=== PATIENT | male | born 1965 | race Caucasian/White ===

== ENCOUNTER 2017-12-28 12:14 | Emergency (ER) | payer MEDICAID ==
[~2017-12-28] VITALS: Ht 167.6 cm; Wt 98.0 kg
[~2017-12-28 12:14] MED LIST: ALBU8.5H8 IH
[2017-12-28 12:17] VITALS: BP 151/86
[2017-12-28] MEDS ORDERED: predniSONE 20 MG TABLET PO ONE (12:30)
[2017-12-28] MEDS ORDERED: ALBUTEROL FS 2.5 MG/3 ML VIAL.NEB NEB ONE (12:30)
[2017-12-28] MEDS ORDERED: predniSONE 20 MG TABLET ONE (12:33)
[2017-12-28] MEDS ORDERED: ALBUTEROL FS 2.5 MG/3 ML VIAL.NEB ONE (12:34)
== END 2017-12-28 13:09 | disposition home or self-care (01) ==
LOC: ER 12:26
DX: J45.909 Unspecified asthma, uncomplicated (principal); H60.502 Unspecified acute noninfective otitis externa, left ear; I10 Essential (primary) hypertension; F17.200 Nicotine dependence, unspecified, uncomplicated; Z88.0 Allergy status to penicillin
CPT/HCPCS: A4606; Z7610

== ENCOUNTER 2018-12-12 16:11 | Emergency (ER) | payer MEDICAID ==
[~2018-12-12] VITALS: Ht 167.6 cm; Wt 83.9 kg
[2018-12-12 16:24] VITALS: BP 134/76
--- NOTE | 2018-12-12 16:25 | NUR ---
PHILLY GALICIA AT BEDSIDE FOR EVAL.
== END 2018-12-12 16:51 | disposition home or self-care (01) ==
LOC: ER 16:16
DX: B26.9 Mumps without complication (principal); I10 Essential (primary) hypertension; J45.909 Unspecified asthma, uncomplicated; F17.200 Nicotine dependence, unspecified, uncomplicated; Z88.0 Allergy status to penicillin

== ENCOUNTER 2020-10-17 10:43 | Emergency (ER) | payer MEDICAID ==
[~2020-10-17] VITALS: Ht 167.6 cm; Wt 95.3 kg
[2020-10-17 11:08] VITALS: BP 146/90
--- NOTE | 2020-10-17 11:37 | NUR ---
Patient discharged to home in stable condition. Written and verbal after care instructions given. Patient verbalizes understanding of instruction.
== END 2020-10-17 11:37 | disposition home or self-care (01) ==
LOC: ER 10:44
DX: J45.909 Unspecified asthma, uncomplicated (principal); I10 Essential (primary) hypertension; Z76.0 Encounter for issue of repeat prescription; Z88.0 Allergy status to penicillin; Z79.899 Other long term (current) drug therapy

== ENCOUNTER 2021-01-01 09:24 | Emergency (ER) | payer MEDICAID ==
[~2021-01-01] VITALS: Ht 167.6 cm; Wt 95.3 kg
[2021-01-01 09:25] VITALS: BP 151/79
[2021-01-01] MEDS ORDERED: ALBU8.5H8 INH (09:31)
--- NOTE | 2021-01-01 09:33 | NUR ---
SEEN AND EXAMINED BY .
--- NOTE | 2021-01-01 09:36 | NUR ---
CALLED RT FOR BREATHING TX.
[2021-01-01] MEDS ORDERED: ALBUTEROL FS 2.5 MG/0.5 ML VIAL.NEB ONE (09:48)
--- NOTE | 2021-01-01 09:59 | NUR ---
Patient discharged to home in stable condition. Written and verbal after care instructions given. Patient verbalizes understanding of instruction.
[2021-01-01] MEDS ORDERED: ALBUTEROL FS 2.5 MG/0.5 ML VIAL.NEB NEB ONE (10:00)
== END 2021-01-01 10:00 | disposition home or self-care (01) ==
LOC: ER 09:24
DX: J45.909 Unspecified asthma, uncomplicated (principal); I10 Essential (primary) hypertension; F17.200 Nicotine dependence, unspecified, uncomplicated; Z88.0 Allergy status to penicillin; Z60.2 Problems related to living alone; Z79.899 Other long term (current) drug therapy

== ENCOUNTER 2021-05-04 13:19 | Emergency (ER) | payer MEDICAID ==
[~2021-05-04] VITALS: Ht 172.7 cm; Wt 81.2 kg
[~2021-05-04 13:19] MED LIST changes: +ALBU8.5H8 INH
[2021-05-04 13:26] VITALS: BP 129/77
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
[2021-05-04] MEDS ORDERED: IBUPROFEN 600 MG TABLET PO ONE (15:30)
[2021-05-04] MEDS ORDERED: ACETAMINOPHEN ES 500 MG TABLET PO ONE (15:30)
[2021-05-04] MEDS ORDERED: ACETAMINOPHEN ES 500 MG TABLET ONE (15:43)
[2021-05-04] MEDS ORDERED: IBUPROFEN 600 MG TABLET ONE (15:44)
--- NOTE | 2021-05-04 15:47 | NUR ---
strain technician at bedside.
[2021-05-04] MEDS ORDERED: IBUP-1957 PO (17:13)
--- NOTE | 2021-05-04 17:22 | NUR ---
Patient discharged to home in stable condition. Written and verbal after care instructions given. Patient verbalizes understanding of instruction.
== END 2021-05-04 17:22 | disposition home or self-care (01) ==
LOC: ER 13:23
DX: S16.1XXA Strain of muscle, fascia and tendon at neck level, initial encounter (principal); S39.012A Strain of muscle, fascia and tendon of lower back, initial encounter; S80.01XA Contusion of right knee, initial encounter; M70.22 Olecranon bursitis, left elbow; M17.11 Unilateral primary osteoarthritis, right knee; I10 Essential (primary) hypertension; F17.200 Nicotine dependence, unspecified, uncomplicated; J45.909 Unspecified asthma, uncomplicated; Z88.0 Allergy status to penicillin; Z60.2 Problems related to living alone; Z79.899 Other long term (current) drug therapy; V49.49XA Driver injured in collision with other motor vehicles in traffic accident, initial encounter; Y93.89 Activity, other specified; Y92.413 State road as the place of occurrence of the external cause; Y99.8 Other external cause status
CPT/HCPCS: 72050-TC; 72110-TC; 73080-TC; 73564-TC